=== PATIENT | female | born 1960 | race Caucasian/White ===

== ENCOUNTER 2017-07-01 17:03 | Emergency (ER) | payer OTHER ==
[2017-07-01 17:14] VITALS: RESP 18; TEMP 98.2
--- NOTE | 2017-07-01 18:22 | EDPHY ---
H & P Stated Complaint: TRIPPED AND FELL L WRIST AND KNEE INJ Time Seen by Provider: 07/01/17 18:17 HPI/ROS: CHIEF COMPLAINT: Left wrist injury HISTORY OF PRESENT ILLNESS: The patient is a 56 y/o female with a history of arthritis complaining of moderate left wrist pain secondary to a fall off a step this afternoon. She tripped and fell forward, landing on her outstretched left hand. Immediate onset of moderate left wrist pain. The pain increases with movement of her thumb. She denies head strike, loss of consciousness, weakness, paresthesias, or other injuries. No anticoagulants. - Personal History Current Tetanus Diphtheria and Acellular Pertussis (TDAP): Yes - Medical/Surgical History PMH: Arthritis Hx Asthma: Yes Hx Chronic Respiratory Disease: No Hx Diabetes: No Hx Cardiac Disease: No Hx Renal Disease: No Hx Cirrhosis: No Hx Alcoholism: No Hx HIV/AIDS: No Hx Splenectomy or Spleen Trauma: No Other PMH: ASTHMA/ARTHRITIS - Social History Smoking Status: Never smoked Additional Social History: Lives in [place]. Employed. . Hand surgeon: Dr. Lynn - Physical Exam Exam: General Appearance: Alert, pleasant Extremities: Left wrist--tenderness, ecchymosis, and swelling over volar aspect of wrist, snuffbox tenderness, pain with compression of thumb and pain with ROM of wrist. Skin: intact: Vascular: 2+ radial pulse, cap refill brisk Neuro: motor/sensory intact Constitutional: Initial Vital Signs Temperature (C) 36.8 C 07/01/17 17:11 Heart Rate 72 07/01/17 17:11 Respiratory Rate 18 07/01/17 17:11 Blood Pressure 140/79 H 07/01/17 17:11 O2 Sat (%) 95 07/01/17 17:11 O2 Delivery Mode Room Air Allergies/Adverse Reactions: morphine [Morphine] Allergy (Severe, Verified 07/01/17 17:09) Unknown Home Medications: Medication Instructions Recorded Calcium 07/01/17 CeleBREX 07/01/17 Magnesium 07/01/17 Protonix 07/01/17 Singulair 07/01/17 Zoloft 100mg (*) 07/01/17 Medical Decision Making - Diagnostics Imaging Results: Wrist XRay: severe DJD, no fx Imaging: I viewed and interpreted images myself ED Course/Re-evaluation: This is a healthy 56 y/o female with a history of arthritis who presents with left wrist pain secondary to landing on it during a mechanical trip and fall. She has tenderness, ecchymosis, and swelling over the volar aspect of her wrist with snuffbox tenderness and pain with compression of thumb and ROM of the wrist. CMS intact. X-ray shows arthritic changes, but no definite fracture. Exam could indicate scaphoid fracture that is not yet visible on the x-ray in addition to sprain. I discussed this possibility with the patient and advised following up with her hand surgeon, Dr. Lynn, next week for reevaluation and repeat x-rays. She will be placed in an Orthoglass splint and discharged with standard sprain care instructions and return precautions. She is comfortable with this plan. Procedure: Sprain treatment. The patient had x-rays taken and I confirmed that the patient had no obvious wrist fracture. I do not believe that the patient requires immediate orthopedic consultation, nor do I believe that reduction at a later date will be required. A thumbspica ortho-glass splint was applied with ample cast padding in a position of function. After application of the splint, I returned and re-examined the patient. The splint was adequately immobilizing the joint and distal to the splint the patient's circulation and sensation was intact. Departure - Departure Disposition: Home, Routine, Self-Care Clinical Impression: Left wrist sprain Qualifiers: Encounter type: initial encounter Qualified Code(s): S63.502A - Unspecified sprain of left wrist, initial encounter Condition: Good Instructions: Splint Care (ED), Wrist Sprain (ED) Additional Instructions: 1. Your x-rays today do not show a definite fracture; however, it is possible to have a fracture that will not show up on x-ray for several days. Please follow up with Dr. Lynn next week for reevaluation and repeat x-rays. 2. Keep splint clean, dry, and in place until follow up with Dr. Lynn. 3. Use ibuprofen and Tylenol as directed as needed for pain over the next few days. 4. Apply ice to sore areas intermittently for the first 24-48 hours. Elevate wrist when possible. 5. Return to the ED for severe pain, weakness or numbness in your fingers, dramatic increase in swelling, or other worsening of condition. Adult Pain & Fever Control: We recommend Acetaminophen (Tylenol) and Ibuprofen (Motrin,Advil) for pain and fever control. When fever is high or pain severe, both drugs can be used at the same time, but at different intervals. Please note the time differences. Your dose is: Acetaminophen 650mg every 4 to 6 hours Ibuprofen 600mg every 6-8 hours with food Note: do not take Acetaminophen with Hydrocodone (Vicodin, Lortab) or Oxycodone (Percocet). These medications also contain Acetaminophen. No more than 3000mg of Acetaminophen should be taken in 24 hours (for an adult). Referrals: ASHLEE MOORE [Primary Care Provider] - As per Instructions Shaun Lynn MD [Medical Doctor] - As per Instructions Report Scribed for: Adilia Jones Report Scribed by: Yuli Nugent Date of Report: 07/01/17 Time of Report: 18:27 Physician Review and Approval Statement: 07/01/17 18:27 Portions of this note were transcribed by a emergency medical technician basic. I personally performed a history, physical exam, medical decision making, and confirmed accuracy of information the transcribed note.
[2017-07-01 18:59] VITALS: BP 133/88; PULSE 79; O2SAT 96
== END 2017-07-01 18:57 | disposition home or self-care (01) ==
DX: S63.502A Unspecified sprain of left wrist, initial encounter (principal); J45.909 Unspecified asthma, uncomplicated; W10.9XXA Fall (on) (from) unspecified stairs and steps, initial encounter